=== PATIENT | female | born 1945 | race Caucasian/White ===

== ENCOUNTER 2024-07-08 07:02 | Inpatient (IN) | payer MEDICARE, OTHER, SELFPAY ==
[2024-07-06 18:20] VITALS: BP 103/51
--- NOTE | 2024-07-06 19:35 | ED.MUSCINJ ---
HPI-Injury
General
Chief Complaint: Musculo-Skeletal Complaint
Source: patient
Exam Limitations: none
Time Seen by Provider: 07/06/24 19:22
Nursing documentation reviewed up to this point in time: agreed with
History of Present Illness-Injury
Is this injury a work related problem?: No
Is pt an associate of [facility]/[place]?: No
Initial Injury comments:
Tripped and fell on patio this afternoon. Denies hitting her head. COmplains of pain to bilateral knees, wrist, left ant. chest wall. Unable to ambulate at home. Brought to eD via EMS for eval.
Past History
Past History
ED Past Medical History: Hypercholesterolemia and Psychiatric (anxiety)
Review of Systems
Review of Systems
Allergies reviewed?: Yes
All Other Systems: ROS reviewed and negative except as documented in HPI and ROS
Constitutional: Reports no symptoms
EENT: Reports no symptoms
Respiratory: Reports no symptoms
Cardiac: Reports no symptoms
ABD/GI: Reports no symptoms
Musculoskeletal: Reports joint pain (bilateral ant. knees, wrist, left ant. chest)
Skin: Reports no symptoms
Neurological: Reports no symptoms
Psychiatric: Reports no symptoms
Musculoskeletal Injury Exam
Musculoskeletal Injury Exam
Left Wrist:
Pain with Movement?: Mild
Tender to palpation?: Mild
Soft tissue swelling?: None
External deformity and angulation?: None
Joint effusion?: None
Contusion?: None
Hematoma-local bleeding into tissue?: None
Strain- Sprain- Tear (Connective tissue injury)?: Mild
Crepitus with movement?: No
Joint instability?: No
Malalignment/deformity?: No
Range of motion: Limited
Distal skin color and temperature: normal-warm & good color
Capillary Refill: normal
Normal distal neurovascular exam?: Yes
Peripheral Pulses: radial (left): 3+
Bilateral Anterior Knee:
Pain with Movement?: Moderate
Tender to palpation?: Moderate
Soft tissue swelling?: Mild
External deformity and angulation?: None
Contusion?: Moderate
Hematoma-local bleeding into tissue?: Moderate
Crepitus with movement?: No
Joint instability?: No
Malalignment/deformity?: No
Range of motion: Limited
Distal skin color and temperature: normal-warm & good color
Capillary Refill: normal
Normal distal neurovascular exam?: Yes
Left Anterior Chest:
Pain with Movement?: Mild
Tender to palpation?: Mild
Soft tissue swelling?: None
External deformity and angulation?: None
Joint effusion?: None
Contusion?: Mild
Hematoma-local bleeding into tissue?: None
Strain- Sprain- Tear (Connective tissue injury)?: None
Crepitus with movement?: No
Joint instability?: No
Malalignment/deformity?: No
Range of motion: Full
Distal skin color and temperature: normal-warm & good color
Capillary Refill: normal
Normal distal neurovascular exam?: Yes
Phy Exam
General Physical Exam
General Presentation: well appearing and moderate distress
General age: appears stated age
General Skin: warm and dry
General Habitus: normal
General Mental: alert
Gastrointestinal Exam
Gastrointestinal Exam: non tender and soft
Neurological Exam
Neurological Exam: alert, oriented x3, CN II-XII intact, no sensory deficits and speech normal
Musculoskeletal Exam
Musculoskeletal Exam: neuro vasc intact
Skin Exam
Skin Exam: normal color, warm/dry and no rash
Psychiatric Exam
Psychiatric Exam: normal mood/affect
Injury Course
Orders/Labs/Results
Orders:
Orders
07/06/24 Dinner
Regular
At Your Request: Full Participation
Does patient need a safe tray?: No
07/06/24 18:25
CR Knee - Left 4 Or More View* Urgent
Comment:
Reason For Exam: pain
CR Knee- Right 4 Or More View* Urgent
Comment:
Reason For Exam: pain
CR Wrist - Left Min 3 Views Urgent
Comment:
Reason For Exam: pain
Chest [CR Chest - 2 Views ] Urgent
Comment:
Reason For Exam: pain
07/06/24 19:58
BMP [Basic Metabolic Panel] Urgent
Complete Blood Count/With Diff Urgent
07/06/24 20:19
Calcium 200mg(Ca. Carb. 500mg) [Tums Chewable Tablet] 200 mg PO BIDPRN PRN
07/06/24 20:20
Admit/Transfer Patient As Directed
Co-Sign Provider:
Level of Care: Observation services
Assign to:: Medical/Surgical
Physician / Group: hospitalist
Diagnosis: patellar fracture biilaterally
Code Status As Directed
Resuscitation Status: Do not resuscitate
Reached after discussion with pt or family/Healthcare POA: Yes
PRN Pain Medication Management As Directed
May give lesser potent ordered pain med per pt: Yes
preference::
Protocol:: Medication orders for pain may be administered in a
manner that supports deferring to patient preference
when the pt is:
- Requesting an ordered lesser potent pain medication.
Least to most potent pain medications are defined
as: acetaminophen < NSAID < tramadol < opioids
(morphine, oxycodone, hydromorphone).
- Requesting a lesser dose of the same medication IF
ORDERED.
- Requesting a less intrusive route of administration
if both routes are prescribed by the provider (PO <
IV).
07/06/24 20:21
DNR Bracelet Application ONCE
07/06/24 20:37
Alprazolam [Xanax] 1 mg PO ONCE ONE
07/06/24 21:22
Acetaminophen [Tylenol] 650 mg PO Q4HPRN PRN
Bisacodyl [Dulcolax] 10 mg RECTAL [id number] PRN
Docusate W/Senna [Senokot-S] 1 tablet PO BIDPRN PRN
Ketorolac [Toradol] 10 mg IV Q6HPRN PRN
Polyethylene Glycol Powder [Miralax] 17 grams PO DAILYPRN PRN
07/06/24 21:22
Activity As Directed
Activity Level: With Assistance
Vital Signs As Directed
Frequency: Per unit guidelines
Pt Eval And Treat Routine
Activity Level: With Assistance
DX Deep Vein Thrombosis Video Routine
07/06/24 22:00
Atorvastatin [Lipitor] 10 mg PO HS
Citalopram [Celexa] 10 mg PO HS
07/07/24 08:00
Multivitamin [Theragran] 1 tablet PO DAILY
07/07/24 18:00
Enoxaparin Sodium [Lovenox] 40 mg SC QPM
07/07/24 18:38
Alprazolam [Xanax] 1 mg PO HSPRN PRN
07/07/24 22:00
Alprazolam [Xanax] 1 mg PO HS
Abnormal Lab Results
07/06/24
19:58
Hgb 11.6 L g/dL
(12.0-16.0)
Hct 34.8 L %
(37.0-47.0)
MCV 80.7 L fL
(81.0-99.0)
MCH 26.9 L pg
(27.0-31.0)
RDW 14.6 H %
(11.5-14.5)
Absolute Neuts (auto) 8.1 H 10^3/uL
(1.4-6.5)
Absolute Monos (auto) 0.7 H 10^3/uL
(0.1-0.6)
Neutrophils % 80.0 H %
(42.2-75.2)
Lymphocytes % 12.1 L %
(20.5-51.1)
BUN 21 H mg/dl
(7-17)
Glucose 116 H mg/dl
(70-99)
07/06/24 19:58
07/06/24 19:58
*Radiology
Radiology exam reviewed: radiology read reviewed
*Pulse Oximetry
Patient hypoxic: no
*Critical Care Note
Total Time (30-74mins, 75-104mins- exclusive of procedures): Not Applicable
Update Note
Update Note:
Patient having great difficulty with ambulation and transfer. Will admit to hospitalistJESSICA in AM. Dr. Tristan notified. Requests bilateral knee immobilizers, 22' for treatment. Nonoperative course..
ED Attending Note
-
Portions of this chart may have been created with voice recognition software.� Occasional wrong word or��sound alike� substitutions may have occurred due to the inherent limitations of voice recognition software.
Discharge Plan
Departure
Patient Disposition: Admit
Date of Disposition: 07/06/24
Time of Disposition: 19:57
Presentation/result/management discussed w/ accepting MD/DO: Hospitalist
Patient with high blood pressure during this ER visit?: Yes
Condition: Fair
Covid-19: Not Applicable
Discharge Problem:
Ambulatory dysfunction, Patella fracture
Interventions
Interventions:
*Risk Screen - Suicide Last Done: 07/06/24 18:20
*General Assessment Last Done: 07/06/24 19:19
*Neglect/Abuse Screening Last Done: 07/06/24 19:19
*Nursing Disposition Last Done: 09/18/24 21:51
ED-Musculoskeletal Assessment Last Done: 07/06/24 19:19
Discharge Date and Time
Discharge Date/Time: 07/06/24 21:55
--- NOTE | 2024-07-06 20:12 | HPS.HSE ---
Family Physician
-
Family Physician: Dev Honeycutt
Chief Complaint
-
Fall and bilateral patella fracture, decreased function
History of Present Illness
This is a 78-year-old female generally healthy with past medical history of hyperlipidemia, anxiety who presents to the emergency department following a mechanical fall.
Patient was walking in a getting trying to feed a base when she tripped over a step and fell landing on bilateral knees and breast. She did not hit her head. There was no loss of consciousness. She was able to initially get up on her own and
attempt to walk but with pain she was having difficulty walking. She had no immediate swelling. She came to the emergency department which was found to have bilateral patellar fractures on x-ray. Patient denies any other symptoms. She had
otherwise been in usual state of health.
In the ED she was afebrile hemodynamically stable in no acute distress. Blood pressure 103/51 pulse 71 oxygen saturation 90% on room air. X-ray shows bilateral patella fractures routine labs are pending.
Medical History
Past Medical History
Past Medical History: Reports Hypercholesterolemia
Additional Past Medical History:
Anxiety
Trigeminal neuralgia s/p left nerve sheath surgery
Past Surgical History: Reports None
Social History
Tobacco: Non-smoker
Alcohol: Daily (1 glass of wine )
Drug: None
Personal: Single
Living: Alone
Employment: Retired
Family History
Family History: Not pertinent
Allergies / Home Medications
Allergies reflects when Allergies were last updated in [employer].
Home Medications with original date entered in [employer]
Allergy/Medication List:
Allergies
Allergy/AdvReac Type Severity Reaction Status Date / Time
No Known Allergies Allergy Verified 07/06/24 18:24
Home Medications
acetaminophen 500 mg tablet (Tylenol Extra Strength) 1,000 mg PO Q6HPRN PRN mild pain 07/06/24
alprazolam 1 mg tablet 1 mg PO HS 07/06/24
calcium carbonate (Tums) 200 mg PO BIDPRN PRN indigestion 07/06/24
citalopram 20 mg tablet 10 mg PO HS 07/06/24
ibuprofen 200 mg tablet (Advil) 200 mg PO Q6HPRN PRN mild pain 07/06/24
simvastatin 20 mg tablet 20 mg PO HS 07/06/24
therapeutic multivitamin 1 tab PO DAILY 07/06/24
Review of Systems
-
History Source: Patient
Constitutional: Reports No Symptoms
EENT: Reports No Symptoms
Respiratory: Reports No Symptoms
Cardiac: Reports No Symptoms
: Reports No Symptoms
Musculoskeletal: Reports Joint Pain
Neurological: Reports No Symptoms
Endocrine: Reports No Symptoms
Hematologic/Lymphatic: Reports No Symptoms
Psych: Reports No Symptoms
Physical Exam
Vital Signs
Vital Signs
Temp Pulse Resp BP Pulse Ox
98 F 71 16 103/51 98
07/06/24 18:20 07/06/24 18:20 07/06/24 18:20 07/06/24 18:20 07/06/24 18:20
Physical Exam
General: Well Developed, Well Nourished, No Apparent Distress and Comfortable
HEENT: NormoCephalic, Anicteric, Moist mucous membranes and Atraumatic
Respiratory: Clear
Cardiac: S1/S2 and Regular Rhythm
GI: Soft, Non Tender, Non Distended and Normal Bowel Sounds
Rectal: Deferred by Provider
Genito-urinary: Deferred by me
Musculoskeletal: No Clubbing, No Cyanosis, No Edema and Other (No knee swelling. Tenderness to palpation. Cannot ambulate)
Skin: Warm
Neuro: AO x 3
Hematologic/Lymphatic: No Lymphadenopathy
Psych: Calm
Laboratory Results
-
Laboratory Results
Total Bilirubin Cancelled 07/06/24 19:53
AST Cancelled 07/06/24 19:53
ALT Cancelled 07/06/24 19:53
Alkaline Phosphatase Cancelled 07/06/24 19:53
Data Reviewed
-
Diagnostic Radiology: Image Personally Visualized and interpreted
Lab Data: Labs Reviewed by me
Impression/Plan
-
IMPRESSION:
78 y.o with HLD and anxiety presenting following a mechanical fall with bilateral patellar fractures. Ortho (Dr. vidal) requests bilateral 22'' knee immobilizers. She is not ambulatory at this point and can be discharged when able.
PLAN:
1. Tani Patellar fractures
- med/surg
- knee immobilizers
- pain control
- pt ot
- dvt ppx w/ lovenox
Code Status - DNR
[2024-07-06 20:16] LABS: % Basophils 0.4 % (0-2); % Eosinophils 0.4 % (0-6); % Immature Granulocytes 0.4 % (0-0.5); % Lymphocytes 12.1 % (20.5-51.1); % Monocytes 6.7 % (1.7-9.3); Absolute Lymphocytes 1.2 10^3/uL (1.2-3.4); Absolute Monocytes 0.7 10^3/uL (0.1-0.6); Absolute Neutrophils 8.1 10^3/uL (1.4-6.5); Hematocrit 34.8 % (37.0-47.0); Hemoglobin 11.6 g/dL (12.0-16.0); Mean Corp Hgb Conc. 33.3 g/dL (33.0-37.0); Mean Corpuscular Hgb 26.9 pg (27.0-31.0); Mean Corpuscular Volume 80.7 fL (81.0-99.0); Mean Platelet Volume 10.2 fL (7.4-10.4); Nucleated Red Blood Cells % 0 %; Platelet Count 203 10^3/uL (130-400); Red Blood Cell Count 4.31 10^6/uL (4.20-5.40); Red Cell Dist. Width 14.6 % (11.5-14.5); White Blood Cell Count 10.1 10^3/uL (4.8-10.8)
[2024-07-06 20:31] LABS: Blood Urea Nitrogen 21 mg/dl (7-17); Calcium 9.2 mg/dl (8.4-10.2); Carbon Dioxide 22 mmol/L (22-30); Chloride 101 mmol/L (98-107); Glucose 116 mg/dl (70-99); Potassium 4.5 mmol/L (3.5-5.1); Sodium 137 mmol/L (135-145); eGFR > 60.00
[2024-07-06 20:42] VITALS: BP 128/64
[2024-07-06] MEDS: XANAX 1 MG PO (20:57)
[2024-07-06 21:51] VITALS: BP 128/64
[2024-07-06 22:01] VITALS: BMI 20.4
[2024-07-06 22:18] VITALS: BP 108/58
[2024-07-06 23:38] VITALS: BP 109/55
[2024-07-06] MEDS: TORADOL 10 MG IV (23:47)
[2024-07-06] MEDS: CELEXA 10 MG PO (23:49)
[2024-07-06] MEDS: LIPITOR 10 MG PO (23:49)
[2024-07-07 04:00] VITALS: BP 136/65
[2024-07-07 08:00] VITALS: BP 102/58
[2024-07-07] MEDS: THERAGRAN 1 TABLET PO (09:05)
--- NOTE | 2024-07-07 10:53 | CON.ORTHO ---
Consultation
-
Date/Time Consultation Requested: 07/07/2024 @ Unknown Time
Date/Time Consultation Performed: 07/07/2024 @ 10:30 AM
Requesting Provider: Elise Matos
Performing Provider: Clement Jackson PA-C for Dr. Tristan
Reason for Consultation: Bilateral Patella Fractures
Consultation - Orthopedics
History
Orthopedic Surgery Note
CC: Bilateral Patella Fx s/p Mechanical Fall
HPI: The patient is a 78-year-old female with a past medical history significant for Hyperlipidemia and Anxiety who presented to [facility] Emergency Department after sustaining a mechanical fall yesterday morning 07/06/2024. Patient reports
that she tripped over a step and fell landing on her bilateral knees and chest. She denies any head trauma or loss of consciousness. She was able to initially get up on her own and attempt to walk, but with pain. She was having difficulty
ambulating. She presented to [facility] Emergency Department where x-rays were performed revealing bilateral patella fractures. Patient endorses pain to the anterior aspect of her bilateral knees. She denies any groin pain. She was
admitted to the Hospitalist service for pain control and ambulatory dysfunction. Orthopedic Surgery was consulted regarding management for her bilateral patella fractures.
PMH/PSH: Hypercholesterolemia, Anxiety.
Medications: Reviewed.
Family History: Family history was reviewed. Noncontributory.
Social history: Nonsmoker, no illicit drugs.
Exam
General appearance: Pleasant. No acute distress.
Head: Normocephalic/atraumatic
Nose: No lesions or discharge.
Skin: No obvious rashes or open wounds.
Lungs: No audible wheezing, no cough or sputum production
Musculoskeletal:
LLE:
Physical examination of the left knee does not reveal any obvious deformity. There is edema and mild abrasion noted overlying the anterior knee. Skin is otherwise intact. There is no ecchymosis. There is no erythema or significant warmth. There
is tenderness to palpation anteriorly overlying the patella. Range of motion not challenge secondary to patella fracture. Calf is soft and nontender to palpation. No hip/groin pain with gentle logroll. NVI distally.
RLE:
Physical examination of the right knee does not reveal any obvious deformity. There is edema and a mild effusion noted about the right knee. Skin is intact. There is no ecchymosis. There is no erythema or significant warmth. There is tenderness
palpation anteriorly overlying the patella. Range of motion challenge secondary to patella fracture. Calf is soft and nontender to palpation. No hip/groin pain with gentle logroll. NVI distally.
Imaging:
Xrays:
CR Knee - RIGHT 4 or More View* was obtained at [facility] on 07/06/2024 and was made available for my review today. Findings: There is osteopenia with an acute transverse oblique fracture of the midportion of the patella associated with 2
mm step-off at the patellofemoral joint. There is only 1 mm distraction of the fracture fragments. There is moderate joint space narrowing and degenerative spurring indicating degenerative osteoarthritis at the lateral aspect of the tibiofemoral
joint. Impression: Acute transverse oblique fracture of the midportion of the patella associated with 2 mm step-off at the patellofemoral joint.
CR Knee - LEFT 4 or More View* was also obtained at [facility] on 07/06/2024 and was made available for my review today. Findings: There is osteopenia with acute nondisplaced oblique fracture of the mid and lower portion of the patella.
There is no significant distraction of the fracture fragments. There is no significant step-off at the patellofemoral joint. There is narrowing of the lateral aspect of the tibiofemoral joint consistent with degenerative osteoarthritis.
Impression: There is osteopenia with acute nondisplaced oblique fracture of the mid and lower portion of the patella.
Assessment: 78-year-old female with bilateral patellar fractures.
Plan:
1) Will proceed with non-op treatment. Knee immobilizers (22') to bilateral lower extremities. Knee immobilizers to be worn day and night, removing for showering purposes only.
2) WBAT to B/L lower extremities with assistance of walker for ambulatory assistance.
3) Pain control per primary team. Ice therapy for edema control.
4) PT/OT.
5) Recommend outpatient follow-up in 1 week for serial radiographs for position check.
6) Orthopedic surgery will sign off at this time. Please reengage with any further questions or concerns.
Allergies / Home Medications
Allergy/AdvReac Type Severity Reaction Status Date / Time
No Known Allergies Allergy Verified 07/06/24 18:24
�Medication �Instructions �Recorded
acetaminophen 500 mg tablet 1,000 mg PO Q6HPRN PRN mild pain 07/06/24
(Tylenol Extra Strength)
alprazolam 1 mg tablet 1 mg PO HS Mental Health/Anxiety 07/06/24
calcium carbonate (Tums) 200 mg PO BIDPRN PRN indigestion 07/06/24
citalopram 20 mg tablet 10 mg PO HS Mental Health/Anxiety 07/06/24
ibuprofen 200 mg tablet (Advil) 200 mg PO Q6HPRN PRN mild pain 07/06/24
simvastatin 20 mg tablet 20 mg PO HS High Cholesterol 07/06/24
therapeutic multivitamin 1 tab PO DAILY Supplement 07/06/24
Vital Signs / Lab Results
Temp Pulse Resp BP Pulse Ox
99.0 F 69 18 102/58 100
07/07/24 08:00 07/07/24 08:00 07/07/24 08:00 07/07/24 08:00 07/07/24 08:00
07/06/24 19:58
07/06/24 19:58
--- NOTE | 2024-07-07 11:01 | CM ---
Addendum entered by Yovana Lee RN 07/07/24 14:13:
CM consult for substance abuse received. CM offered BCAREs and AA resources. Declined. Patient is agreement with referral for short term rehab be sent to [facility]. Patient understands it will be private pay. Patient has no one to assist in the home.
Original Note:
Reviewed the chart notes and spoke with the patient at the bedside. The patient is admitted under observational status. The [facility] letter was provided and explained. The patient had no questions with regards to the letter.
The patient resides alone in an independent apartment at [facility]. The patient reports no DME/SNF in the past, but has had VN. Agency name unknown. The patient confirmed her pharmacy of choice is the [facility]. PT/OT
evaluations pending. CM continues to be available to patient/family and is monitoring medical plan for needs at discharge.
Plan: Discharge plans will depend on the patient's progress. VN order received, although not sure patient will be able to discharge to home alone.
--- NOTE | 2024-07-07 11:07 | W.PN.HOSP.TC ---
Today's Communication/Plan
-
Knee immobilizers
Alcohol withdrawal protocol
PT/OT
Discharge planning
Assessment / Plan
Assessment / Plan
Gen-AAOx3, NAD
HEENT-NC, AT, anicteric, clear oral mm
Neck-supple
CV-reg, no M, +S1/S2
Lungs-clear B/L
Abd-soft, NT, ND
Ext-no edema
Musculoskeletal-no cyanosis, clubbing
Skin-warm and dry
Neuro-grossly non-focal
Psych-calm, cooperative
Acute traumatic bilateral patellar fractures -x-ray noted. Knee immobilizer ordered by orthopedics. Outpatient follow-up with Dr. Tristan in 1 week. Weightbearing as tolerated as per orthopedics.
Continue analgesics.
Suspect underlying osteoporosis. Discussed with the patient.
Alcohol use disorder -she drinks about 3 glasses of wine daily. Last drink was either Thursday or Thursday according to patient. We discussed the risks involved including risk of osteoporosis from alcohol. She plans to quit. She denies any history
of withdrawal symptoms in the past. Alcohol withdrawal protocol ordered. Discussed with nursing.
Microcytic anemia -will need outpatient evaluation with PCP.
Hyperlipidemia
Anxiety disorder
History of trigeminal neuralgia
DNR
Dispo -await PT/OT input, may need SNF. She resides in [facility].
Anticipated Discharge: Within 24 hours
Subjective/Interval History
-
Date of Service: July 07, 2024
Patient seen and examined. Complaining of bilateral knee pain.
Objective Data
-
Vital Signs:
Vital Signs
Temp Pulse Resp BP Pulse Ox
99.0 F 69 18 102/58 100
07/07/24 08:00 07/07/24 08:00 07/07/24 08:00 07/07/24 08:00 07/07/24 08:00
I&O
07/06/24 07/07/24 07/08/24
06:59 06:59 06:59
Output Total 600 / 600
Balance -600 / -600
Review of Systems
-
History Source: Patient
All other systems: Reviewed and negative
[2024-07-07 12:50] VITALS: BP 133/72; PULSE 68
[2024-07-07 12:54] VITALS: BP 133/72; PULSE 68
[2024-07-07] MEDS: FOLVITE 1 MG PO (13:09)
--- NOTE | 2024-07-07 14:14 | W.PN.UPDATE ---
Update Note
Progress Note Update
Patient seen and examined. She is resting comfortably in a chair. Agree with orthopedic PA note.
Knee immobilizers intact. Good active range of motion ankle and toes. Neurovascularly intact.
X-rays performed of bilateral knees AP and lateral show nondisplaced fractures of the body of the patella
Impression nondisplaced fractures body of patella bilaterally
Plan: Patient will wear her knee immobilizers at all times except showering for 4 weeks. I will see her in 2 weeks for x-rays to check alignment of the fractures. She may weight-bear as tolerated with a walker. Physical therapy and Occupational
Therapy for gait training. She will have the knee immobilizers on for a total of 6 weeks. She is to take anti-inflammatory medicine and Tylenol for any pain or discomfort. All questions were answered.
[2024-07-07] MEDS: THIAMINE INJECTION 200 MG IV ×2 (16:26→23:35)
[2024-07-07 16:54] VITALS: BP 121/70
[2024-07-07] MEDS: LOVENOX 40 MG SC (17:16)
[2024-07-07] MEDS: LIPITOR 10 MG PO (22:34)
[2024-07-07] MEDS: CELEXA 10 MG PO (22:34)
[2024-07-07] MEDS: XANAX 1 MG PO (22:58)
[2024-07-08] VITALS: BP 129/60
[2024-07-08 07:43] VITALS: BP 118/74
[2024-07-08] MEDS: THERAGRAN 1 TABLET PO (08:46)
[2024-07-08] MEDS: THIAMINE INJECTION 200 MG IV ×2 (08:46→16:29)
[2024-07-08] MEDS: FOLVITE 1 MG PO (08:47)
--- NOTE | 2024-07-08 11:40 | PTCARENOTE ---
walked with pt in hallway, pt performed ADLS today, OOB to chair, eating. Does think she will need a commode to place over her toilet for height and support.
--- NOTE | 2024-07-08 12:31 | W.PN.HOSP.TC ---
Today's Communication/Plan
-
Discharge planning
Assessment / Plan
Assessment / Plan
Gen-AAOx3, NAD
HEENT-NC, AT, anicteric, clear oral mm
Neck-supple
CV-reg, no M, +S1/S2
Lungs-clear B/L
Abd-soft, NT, ND
Ext-no edema
Musculoskeletal-no cyanosis, clubbing, bilateral lower extremity immobilizers
Skin-warm and dry
Neuro-grossly non-focal
Psych-calm, cooperative
Acute traumatic bilateral patellar fractures -x-ray noted. Knee immobilizer ordered by orthopedics. Outpatient follow-up with Dr. Tristan in 2 weeks. Weightbearing as tolerated as per orthopedics.
Continue analgesics.
Suspect underlying osteoporosis. Discussed with the patient to discuss further with her primary care doctor.
Alcohol use disorder -she drinks about 3 glasses of wine daily. Last drink was either Thursday or Thursday according to patient. We discussed the risks involved including risk of osteoporosis from alcohol. She plans to quit. She denies any history
of withdrawal symptoms in the past. Alcohol withdrawal protocol ordered. Discussed with nursing.
Microcytic anemia -will need outpatient evaluation with PCP.
Hyperlipidemia
Anxiety disorder
History of trigeminal neuralgia
DNR
Dispo -medically stable for discharge to SNF. Case management aware.
Anticipated Discharge: Within 24 hours
Subjective/Interval History
-
Date of Service: July 08, 2024
Patient seen and examined. Having less knee pain. Feels better with the immobilizer.
Objective Data
-
Vital Signs:
Vital Signs
Temp Pulse Resp BP Pulse Ox
98.2 F 64 16 118/74 96
07/08/24 07:43 07/08/24 07:43 07/08/24 07:43 07/08/24 07:43 07/08/24 07:43
I&O
07/07/24 07/08/24 07/09/24
06:59 06:59 06:59
Intake Total 960 / 960
Output Total 600 / 600
Balance -600 / -600 960 / 960
Review of Systems
-
History Source: Patient
All other systems: Reviewed and negative
--- NOTE | 2024-07-08 14:22 | CM ---
Addendum entered by Yovana Lee RN 07/08/24 16:27:
IMM on chart.
Original Note:
Reviewed the chart notes and spoke with the patient at the bedside. [facility] will have a bed for the patient on Thursday. Patient had a LOC to inpatient. CM continues to be available to patient/family and is monitoring medical plan for needs at
discharge.
Plan: Discharge to [facility] on Thursday.
[2024-07-08 15:19] VITALS: BP 120/66; PULSE 68; O2SAT 98
[2024-07-08 15:21] VITALS: BP 120/66; PULSE 66; O2SAT 98
[2024-07-08 15:26] VITALS: BP 120/66
[2024-07-08] MEDS: LOVENOX 40 MG SC (16:29)
[2024-07-08] MEDS: TYLENOL 650 MG PO (19:35)
[2024-07-08] MEDS: CELEXA 10 MG PO (22:27)
[2024-07-08] MEDS: XANAX 1 MG PO (22:27)
[2024-07-08] MEDS: LIPITOR 10 MG PO (22:27)
[2024-07-08 22:31] VITALS: BP 120/66
[2024-07-09] MEDS: THIAMINE INJECTION 200 MG IV ×4 (00:41→23:24)
[2024-07-09 07:25] VITALS: BP 98/54
[2024-07-09] MEDS: THERAGRAN 1 TABLET PO (09:21)
[2024-07-09] MEDS: FOLVITE 1 MG PO (09:21)
--- NOTE | 2024-07-09 09:33 | W.PN.HOSP.TC ---
Today's Communication/Plan
-
Continue current care
Assessment / Plan
Assessment / Plan
Gen-AAOx3, NAD
HEENT-NC, AT, anicteric, clear oral mm
Neck-supple
CV-reg, no M, +S1/S2
Lungs-clear B/L
Abd-soft, NT, ND
Ext-no edema
Musculoskeletal-no cyanosis, clubbing, bilateral lower extremity immobilizers
Skin-warm and dry
Neuro-grossly non-focal
Psych-calm, cooperative
Acute traumatic bilateral patellar fractures -x-ray noted. Knee immobilizer ordered by orthopedics. Outpatient follow-up with Dr. Tristan in 2 weeks. Weightbearing as tolerated as per orthopedics.
Continue analgesics.
Suspect underlying osteoporosis. Discussed with the patient to discuss further with her primary care doctor.
Alcohol use disorder -she drinks about 3 glasses of wine daily. Last drink was either Thursday or Thursday according to patient. We discussed the risks involved including risk of osteoporosis from alcohol. She plans to quit. She denies any history
of withdrawal symptoms in the past. Alcohol withdrawal protocol ordered. Discussed with nursing.
Microcytic anemia -will need outpatient evaluation with PCP.
Hyperlipidemia
Anxiety disorder
History of trigeminal neuralgia
DNR
Dispo -medically stable for discharge to SNF. Case management aware. Bed not available until Thursday.
Anticipated Discharge: 24 - 48 hours
Subjective/Interval History
-
Date of Service: July 09, 2024
Patient seen and examined. Pain is under control. No complaints.
Objective Data
-
Vital Signs:
Vital Signs
Temp Pulse Resp BP Pulse Ox
97.5 F 58 18 98/54 98
07/09/24 07:25 07/09/24 07:25 07/09/24 07:25 07/09/24 07:25 07/09/24 07:25
I&O
07/08/24 07/09/24 07/10/24
06:59 06:59 06:59
Intake Total 960 / 960 1859
Balance 960 / 960 1859
Review of Systems
-
History Source: Patient
All other systems: Reviewed and negative
--- NOTE | 2024-07-09 14:14 | CM ---
CM reviewed chart. [place] at [facility] and plan for bed Thursday for SNF at [facility].
[2024-07-09 14:45] VITALS: BP 114/62; BP 138/70; PULSE 69; O2SAT 97
[2024-07-09 15:10] VITALS: BP 98/61
[2024-07-09] MEDS: LOVENOX 40 MG SC (17:16)
[2024-07-09] MEDS: TYLENOL 650 MG PO (17:19)
[2024-07-09] MEDS: XANAX 1 MG PO (21:19)
[2024-07-09] MEDS: CELEXA 10 MG PO (21:19)
[2024-07-09] MEDS: LIPITOR 10 MG PO (21:19)
[2024-07-09 23:14] VITALS: BP 111/56
[2024-07-10 07:30] VITALS: BP 113/56
--- NOTE | 2024-07-10 08:53 | W.PN.HOSP.TC ---
Today's Communication/Plan
-
Bowel regimen
Assessment / Plan
Assessment / Plan
Gen-AAOx3, NAD
HEENT-NC, AT, anicteric, clear oral mm
Neck-supple
CV-reg, no M, +S1/S2
Lungs-clear B/L
Abd-soft, NT, ND
Ext-no edema
Musculoskeletal-no cyanosis, clubbing, bilateral lower extremity immobilizers
Skin-warm and dry
Neuro-grossly non-focal
Psych-calm, cooperative
Acute traumatic bilateral patellar fractures -x-ray noted. Knee immobilizer ordered by orthopedics. Outpatient follow-up with Dr. Tristan in 2 weeks. Weightbearing as tolerated as per orthopedics.
Continue analgesics.
Suspect underlying osteoporosis. Discussed with the patient to discuss further with her primary care doctor.
Alcohol use disorder -she drinks about 3 glasses of wine daily. Last drink was either Thursday or Thursday according to patient. We discussed the risks involved including risk of osteoporosis from alcohol. She plans to quit. She denies any history
of withdrawal symptoms in the past. Alcohol withdrawal protocol ordered. No signs or symptoms of withdrawal so far. Has not required any lorazepam so far.
Microcytic anemia -will need outpatient evaluation with PCP.
Hyperlipidemia
Anxiety disorder
History of trigeminal neuralgia
Constipation -last BM was Thursday, will change MiraLAX to daily. Continue other bowel meds.
DNR
Dispo -medically stable for discharge to SNF. Case management aware. Bed not available until Thursday.
Anticipated Discharge: Within 24 hours
Subjective/Interval History
-
Date of Service: July 10, 2024
Patient seen and examined. Pain is under control. No complaints.
Objective Data
-
Vital Signs:
Vital Signs
Temp Pulse Resp BP Pulse Ox
97.5 F 67 18 113/56 96
07/10/24 07:30 07/10/24 07:30 07/10/24 07:30 07/10/24 07:30 07/10/24 07:30
I&O
07/09/24 07/10/24 07/11/24
06:59 06:59 06:59
Intake Total 1859 1440 / 1440
Balance 1859 1440 / 1440
Review of Systems
-
History Source: Patient
All other systems: Reviewed and negative
[2024-07-10] MEDS: MIRALAX 17 GRAMS PO (09:07)
[2024-07-10] MEDS: THERAGRAN 1 TABLET PO (09:13)
[2024-07-10] MEDS: THIAMINE INJECTION 200 MG IV (09:13)
[2024-07-10] MEDS: FOLVITE 1 MG PO (09:13)
[2024-07-10 14:29] VITALS: BP 106/55
[2024-07-10 15:30] VITALS: BP 117/50
[2024-07-10] MEDS: TYLENOL 325 MG PO (16:13)
[2024-07-10] MEDS: LOVENOX 40 MG SC (16:14)
[2024-07-10] MEDS: LIPITOR 10 MG PO (20:26)
[2024-07-10] MEDS: VITAMIN B1 100 MG PO (20:26)
[2024-07-10] MEDS: CELEXA 10 MG PO (20:26)
[2024-07-10] MEDS: SENOKOT-S 1 TABLET PO (20:26)
[2024-07-10] MEDS: XANAX 1 MG PO (20:29)
[2024-07-10] MEDS: TYLENOL 650 MG PO (23:03)
[2024-07-10 23:20] VITALS: BP 115/68
[2024-07-11 07:24] VITALS: BP 123/73
[2024-07-11] MEDS: FOLVITE 1 MG PO (08:04)
[2024-07-11] MEDS: THERAGRAN 1 TABLET PO (08:04)
[2024-07-11] MEDS: VITAMIN B1 100 MG PO (08:05)
[2024-07-11] MEDS: MIRALAX PO (08:07)
[2024-07-11] MEDS: SENOKOT-S PO (08:07)
--- NOTE | 2024-07-11 08:50 | W.PN.HOSP.TC ---
Addendum entered and electronically signed by Octavio Menezes MD 07/13/24 14:30:
Multifactorial, due to fall and suspected osteoporosis
Original Note:
Today's Communication/Plan
-
Discharge to short-term rehab today
Assessment / Plan
Assessment / Plan
Gen-AAOx3, NAD
HEENT-NC, AT, anicteric, clear oral mm
Neck-supple
CV-reg, no M, +S1/S2
Lungs-clear B/L
Abd-soft, NT, ND
Ext-no edema
Musculoskeletal-no cyanosis, clubbing, bilateral lower extremity immobilizers
Skin-warm and dry
Neuro-grossly non-focal
Psych-calm, cooperative
Acute traumatic bilateral patellar fractures -x-ray noted. Knee immobilizer ordered by orthopedics. Outpatient follow-up with Dr. Tristan in 2 weeks. Weightbearing as tolerated as per orthopedics.
Continue analgesics.
Suspect underlying osteoporosis. Discussed with the patient to discuss further with her primary care doctor.
Alcohol use disorder -she drinks about 3 glasses of wine daily. Last drink was either Thursday or Thursday according to patient. We discussed the risks involved including risk of osteoporosis from alcohol. She plans to quit. She denies any history
of withdrawal symptoms in the past. Alcohol withdrawal protocol ordered. No signs or symptoms of withdrawal so far. Has not required any lorazepam so far.
Microcytic anemia -will need outpatient evaluation with PCP.
Hyperlipidemia
Anxiety disorder
History of trigeminal neuralgia
Constipation -last BM was Thursday, will change MiraLAX to daily. Continue other bowel meds.
DNR
Dispo -medically stable for discharge to short-term rehab today
Anticipated Discharge: Today
Subjective/Interval History
-
Date of Service: July 11, 2024
Denies knee pain. Witnessed walking around the hallways without any difficulty. No fever, no vomiting.
Objective Data
-
Vital Signs:
Vital Signs
Temp Pulse Resp BP Pulse Ox
99.4 F 70 16 123/73 97
07/11/24 07:24 07/11/24 07:24 07/11/24 07:24 07/11/24 07:24 07/11/24 07:24
I&O
07/10/24 07/11/24 07/12/24
06:59 06:59 06:59
Intake Total 1440 / 1440 1500 / 1500
Balance 1440 / 1440 1500 / 1500
--- NOTE | 2024-07-11 10:14 | CM ---
Addendum entered by Yovana Lee RN 07/11/24 12:55:
Plan: Discharge to [facility] when medically stable. No precert required.
Call report to: [phone]
Fax report to: [phone]
Medical necessity and transport forms on chart.
Original Note:
Reviewed the chart notes and spoke with the patient at the bedside. IMM reviewed and placed on chart.
[2024-07-11 12:22] VITALS: BP 115/75; PULSE 63; O2SAT 98
--- NOTE | 2024-07-11 12:39 | W.DCSUMMARY ---
Discharge Summary
Discharge Data
Date of Admission: 07/08/24
Date of Discharge: 07/11/24
-
Pending Results: No
Hospital Course
Discharge diagnosis:
Acute traumatic bilateral patellar fractures
Alcohol use disorders
Microcytic anemia
Hyperlipidemia
Anxiety disorder
Constipation
History of trigeminal neuralgia
Consults: Orthopedic surgery
R Knee XR:
Acute transverse oblique fracture of the midportion of the patella associated with 2 mm step off at the patellofemoral joint
L Knee XR:
There is osteopenia with acute nondisplaced oblique fracture of the mid and lower portion of the patella
Hospital course:
78-year-old female with a past medical history of hyperlipidemia, anxiety, daily alcohol use was admitted for bilateral patellar fractures status post mechanical fall. Patient was seen in conjunction with orthopedic surgery, who recommended
conservative management with physical therapy, pain control. She needs to wear her knee immobilizers at all times except when showering for 4 weeks.
Patient had constipation, this resolved with laxatives.
Patient also had microcytic anemia, hemoglobin 11.6, MCV 80.7. She needs to follow-up with her primary care doctor for outpatient workup.
Patient was seen in conjunction with PT, who recommended short-term rehab. She is medically stable for discharge to short-term rehab. She needs to follow-up with orthopedic surgery in the office in 2 weeks, and her primary care doctor 1 week after
she leaves rehab.
Disposition: Short-term rehab
Discharge planning: Required 38 minutes
Discharge Plan
-
Patient Disposition: Prison/SNF
Discharge Diagnosis/Procedures: Bilateral patellar fractures
Condition: Good
Diet: Regular
Activity: As tolerated
Driving Restrictions: Not until seen by your Dr
Bathing Restrictions: None
Referrals:
Dev Honeycutt MD [Family Provider] - in less than 1 week
Aide Tristan I., DO [Active] - in two weeks
Prescriptions:
New
polyethylene glycol 3350 [HealthyLax] 17 gram Powder In Packet
17 g PO DAILY Qty: 0 0RF
thiamine HCl (vitamin B1) 100 mg Tablet
100 mg PO BID Qty: 0 0RF
folic acid 1 mg Tablet
1 mg PO DAILY Qty: 0 0RF
Continued
therapeutic multivitamin Tablet
1 tab PO DAILY
acetaminophen [Tylenol Extra Strength] 500 mg Tablet
1,000 mg PO Q6HPRN PRN (Reason: mild pain)
citalopram 20 mg Tablet
10 mg PO HS
simvastatin 20 mg Tablet
20 mg PO HS
calcium carbonate [Tums] 200 mg calcium (500 mg) Tablet,Chewable
200 mg PO BIDPRN PRN (Reason: indigestion)
ibuprofen [Advil] 200 mg Tablet
200 mg PO Q6HPRN PRN (Reason: mild pain)
alprazolam 1 mg Tablet
1 mg PO HS Qty: 2 0RF
Discharge Orders:
Discharge Patient (As Directed); Ordered 07/11/24
Ordered By: Octavio Menezes
Discharge Date and Time
Discharge Date/Time: 07/11/24 14:45
Print Language: WOLOF
[2024-07-11 14:06] VITALS: BP 126/60
--- NOTE | 2024-07-12 12:06 | PN.CDI ---
CDI
- -
CDI:
Admit Date: [f_Reg Admit Date Time]
Dear Doctor Do
Please review the following and provide your response in the progress notes.
Clinical Indicators:
Patient admitted with b/l patellar fractures
Additional clinical indicators in the chart include:
CRx Knee :there is osteopenia with an acute transverse oblique fracture
PN 07/09, 07/10, 07/11 Suspect underlying osteoporosis
H&P: mechanical fall with b/l patellar fractures
Based on the above, could you clarify the likely etiology of the b/l patellar fractures:
-Multifactorial, due to fall and osteoporosis
-Due to fall only
-Other, please specify
Use of terms such as suspected, likely, concern for, or probable are acceptable for a diagnosis that is being evaluated, monitored or treated as if it exists and can be coded in the inpatient setting, when documented at the time of discharge.
Thank you,
Sirena Kim
[facility]
[f_Mis Current User]
CDI Specialist
Please use your independent medical judgment in providing your response.
== END 2024-07-11 14:45 | DRG 544 ==
LOC: 2 SOUTH 07:02
PROVIDERS: Nurse Practitioner; ADMITTING PHYSICIAN Internal Medicine; ATTENDING PHYSICIAN Family Medicine; EMERGENCY PHYSICIAN Emergency Medicine; FAMILY PHYSICIAN Family Medicine; OTHER PHYSICIAN Orthopaedic Surgery
DX: M80.062A Age-related osteoporosis with current pathological fracture, left lower leg, initial encounter for fracture (principal); M80.061A Age-related osteoporosis with current pathological fracture, right lower leg, initial encounter for fracture; E78.00 Pure hypercholesterolemia, unspecified; F41.9 Anxiety disorder, unspecified; K59.00 Constipation, unspecified; D50.9 Iron deficiency anemia, unspecified; Z66 Do not resuscitate; W01.0XXA Fall on same level from slipping, tripping and stumbling without subsequent striking against object, initial encounter; Z79.899 Other long term (current) drug therapy
CPT/HCPCS: 71046; 73110; 73564; 80048; 85025; 97116; 97162; 97167; 97530; 97535; 97760; 99284

== ENCOUNTER → 2024-07-14 12:17 | Outpatient (REF) | payer MEDICARE, OTHER, SELFPAY ==
[2024-07-14 12:50] LABS: % Basophils 0.6 % (0-2); % Eosinophils 3.7 % (0-6); % Immature Granulocytes 0.2 % (0-0.5); % Lymphocytes 35.7 % (20.5-51.1); % Monocytes 9.1 % (1.7-9.3); % Neutrophils 50.7 % (42.2-75.2); Absolute Eosinophils 0.2 10^3/uL (0-0.7); Absolute Lymphocytes 1.7 10^3/uL (1.2-3.4); Absolute Monocytes 0.4 10^3/uL (0.1-0.6); Absolute Neutrophils 2.5 10^3/uL (1.4-6.5); Hematocrit 31.5 % (37.0-47.0); Hemoglobin 10.4 g/dL (12.0-16.0); Mean Corpuscular Hgb 28.2 pg (27.0-31.0); Mean Corpuscular Volume 85.4 fL (81.0-99.0); Mean Platelet Volume 10.4 fL (7.4-10.4); Nucleated Red Blood Cells % 0 %; Platelet Count 229 10^3/uL (130-400); Red Blood Cell Count 3.69 10^6/uL (4.20-5.40); Red Cell Dist. Width 14.5 % (11.5-14.5); White Blood Cell Count 4.9 10^3/uL (4.8-10.8)
[2024-07-14 13:56] LABS: ALT (SGPT) 23 U/L (0-35); AST (SGOT) 26 U/L (14-36); Albumin 3.5 g/dl (3.5-5.0); Alkaline Phosphatase 56 U/L (38-126); Blood Urea Nitrogen 15 mg/dl (7-17); Carbon Dioxide 28 mmol/L (22-30); Chloride 103 mmol/L (98-107); Glucose 83 mg/dl (70-99); Magnesium 2.3 mg/dl (1.6-2.3); Potassium 4.2 mmol/L (3.5-5.1); Sodium 140 mmol/L (135-145); Total Bilirubin 0.5 mg/dl (0.2-1.3); Total Protein 5.9 g/dl (6.3-8.2); eGFR > 60.00
== END ==
LOC: OLABWIL 12:17
PROVIDERS: ATTENDING PHYSICIAN Family Medicine
DX: K21.9 Gastro-esophageal reflux disease without esophagitis (principal); D50.9 Iron deficiency anemia, unspecified; J18.0 Bronchopneumonia, unspecified organism; G50.0 Trigeminal neuralgia
CPT/HCPCS: 36415; 80053; 83735; 85025